=== PATIENT | female | born 1980 | race Hispanic/Latino ===

== ENCOUNTER 2020-03-19 07:02 | Emergency (ER) | payer SELFPAY ==
[~2020-03-19] VITALS: Ht 160 cm; Wt 83.0 kg
--- OUTSIDE RECORDS SUMMARY | 2020-03-19 07:05 | XMS REPORT | Continuity of Care Document ---
Author Author [facility] t Organization [facility] Address [address] [place] [address] Phone Unavailable Care Team Providers Care Saw Boss Name Role Phone Unavailable Unavailable Payers Payer Name Policy Type Policy Number Effective Date Expiration Date S ource Problems This patient has no known problems. Allergies, Adverse Reactions, Alerts Allergy Name Allergy Type Status Severity Reaction(s) Onset Date Inacti ve Date Treating Clinician Comments Source amoxicillin DA Active 2018-10-23 00:00:00 [facility] amoxicillin DA Active 2017-06-21 00:00:00 [facility] Medications This patient has no known medications. Procedures This patient has no known procedures. Results Test Description Test Time Test Comments Results Result Comments Source - US TRANSVAGINAL NON OB 2018-11-24 13:21:00 N francesco: BRIANDA CRANE [facility] : 1980 Age/S: 38 / F [address] [place] [address] Blvd Unit #: [id number] Loc: [place] [address] Phys: EDDOC GENERIC FOR EDM Acct: [id number] Dis Date: Status: REG ER PHONE #: [phone] Exam Date: 11/24/2018 1249 FAX #: [phone] Reason: PELVIC PAIN EXAMS: CPT CODE: [id number] [place] [address] Exam: Pelvic ultrasound. Exam date: November 24, 2018. Clinical history: Pelvic pain Comparison: None. Real-time transabdominal and transvaginal imaging of the pelvis with spectral Doppler analysis and color-flow imaging demonstrates a 85 x 53 x 56 mm retrodisplaced uterus. The endometrium measures 14 mm No uterine abnormalities are noted. The right ovary measures 32 x 26 x 29 mm with a 16 mm involuting hemorrhagic corpus luteum cyst. The left ovary measures 31 x 20 x 22 mm and has a normal sonographic appearance. Flow is identified in both ovaries. Small amount of nonspecific free fluid is identified. Impression: Findings are most consistent with rupture of a follicular type cyst. Considering the patient's LMP was 09/21/2018 correlation with hCG levels is recommended.. at 1321 Reported and signed by: Kathy Jauregui M.D. CC: Technologist: Oriana Waggoner RDMS(OB)(AB) Trnscb Date/Time: 11/24/2018 (1321) [email or web address] Orig Print D/T: S: 11/24/2018 (8582) Probe: [id number] PAGE 1 Signed Report - US PELVIS COMPLETE 2018-11-24 13:21:00 Name: BRIANDA CRANE [facility] : 1980 Age/S: 38 / F [address] [place] [address] Unit #: [id number] Loc: [place] [address] Phys: Megan Mancera NP Acct: [id number] Dis Date: Status: REG ER PHONE #: [phone] Exam Date: 11/24/2018 1249 FAX #: [phone] Reason: Pelvic Pain EXAMS: CPT CODE: [id number] US PELVIS COMPLETE 26253 Exam: Pelvic ultrasound. Exam date: November 24, 2018. Clinical history: Pelvic pain Comparison: None. Real-time transabdominal and transvaginal imaging of the pelvis with spectral Doppler analysis and color-flow imaging demonstrates a 85 x 53 x 56 mm retrodisplaced uterus. The endometrium measures 14 mm No uterine abnormalities are noted. The right ovary measures 32 x 26 x 29 mm with a 16 mm involuting hemorrhagic corpus luteum cyst. The left ovary measures 31 x 20 x 22 mm and has a normal sonographic appearance. Flow is identified in both ovaries. Small amount of nonspecific free fluid is identified. Impression: Findings are most consistent with rupture of a follicular type cyst. Considering the patient's LMP was 09/21/2018 correlation with hCG levels is recommended.. at 1321 Reported and signed by: Kathy Jauregui M.D. CC: Megan Mancera NP Technologist: Oriana Waggoner RDMS(OB)(AB) Trnrib Date/Time: 11/24/2018 (8331) [email or web address] Orig Print D/T: S: 11/24/2018 (6819) Probe: PAGE 1 Signed Report HEPATIC FUNCTION PANEL 2018-11-24 12:57:00 Test Item TOTAL PROTEIN (test code = PROT) 8.2 g/dL 6.4-8.2 N ALBUMIN (test code = ALB) 4.20 g/dL 3.4-5.0 N BILIRUBIN TOTAL (test code = BILT) 0.30 mg/dL 0.0-1.0 N BILIRUBIN DIRECT (test code = BILD) 0.10 MG/DL 0.0-0.30 N BILIRUBIN INDIRECT (test code = BILIND) 0.20 MG/DL SGOT/AST (test code = AST) 28 IUnit/L 15-37 N SGPT/ALT (test code = ALT) 24 IUnit/L 15-65 N ALKALINE PHOSPHATASE TOTAL (test code = ALKP) 97 IUnit/L 20-125 N [id number] 12:57:00* Test Item Value Reference Range Interpretation Comments LIPASE (test code = LIP) 63 IUnit/L 73-393 L HCG SERUM [id number] 12:57:00* Test Item Value Reference Range Interpretation Comments HCG SERUM QUAL (test code = HCGQL) SERUM NEGATIVE NEGATIVE CBC W/AUTO [id number] 12:48:00* Test Item Value Reference Range Interpretation Comments WHITE BLOOD CELL (test code = WBC) 7.55 x10 3/uL 4.5-11.0 N RED BLOOD CELL (test code = RBC) 4.43 x10 6/uL 3.54-5.02 N HEMOGLOBIN (test code = HGB) 13.9 g/dL 11.0-15.0 N HEMATOCRIT (test code = HCT) 42.7 % 33.0-45.0 N MEAN CELL VOLUME (test code = MCV) 96.4 fL 81.0-99.0 N MEAN CELL HGB (test code = MCH) 31.4 pg 27.0-33.0 N MEAN CELL HGB CONCETRATION (test code = MCHC) 32.6 g/dL 33.0-37. 0 L RED CELL DISTRIBUTION WIDTH CV (test code = RDW) 12.2 % 11.5- 14.5 N RED CELL DISTRIBUTION WIDTH SD (test code = RDW-SD) 43.5 fL 37 .0-54.0 N PLATELET COUNT (test code = PLT) 286 x10 3/uL 150-400 N MEAN PLATELET VOLUME (test code = MPV) 10.6 fL 7.0-9.0 H NEUTROPHIL % (test code = NT%) 61.0 % 56.0-77.0 N IMMATURE GRANULOCYTE % (test code = IG%) 0.5 % 0.0-2.0 N LYMPHOCYTE % (test code = LY%) 29.4 % 14.0-32.0 N MONOCYTE % (test code = MO%) 7.3 % 4.8-9.0 N EOSINOPHIL % (test code = EO%) 0.9 % 0.3-3.7 N BASOPHIL % (test code = BA%) 0.9 % 0.0-2.0 N NUCLEATED RBC % (test code = NRBC%) 0.0 % 0-0 N NEUTROPHIL # (test code = NT#) 4.60 x10 3/uL 2.0-7.6 N IMMATURE GRANULOCYTE # (test code = IG#) 0.04 x10 3/uL 0.00-0.03 H LYMPHOCYTE # (test code = LY#) 2.22 x10 3/uL 1.0-3.8 N MONOCYTE # (test code = MO#) 0.55 x10 3/uL 0.1-0.8 N EOSINOPHIL # (test code = EO#) 0.07 x10 3/uL 0.0-0.2 N BASOPHIL # (test code = BA#) 0.07 x10 3/uL 0.0-0.2 N NUCLEATED RBC # (test code = NRBC#) 0.00 x10 3/uL 0.0-0.1 N MANUAL DIFF REQUIRED (test code = MDIFF) NO HEPATIC FUNCTION [id number] 12:45:00* Test Item Value Reference Range Interpretation Comments TOTAL PROTEIN (test code = PROT) g/dL 6.4-8.2 ALBUMIN (test code = ALB) g/dL 3.4-5.0 BILIRUBIN TOTAL (test code = BILT) mg/dL 0.0-1.0 BILIRUBIN DIRECT (test code = BILD) MG/DL 0.0-0.30 SGOT/AST (test code = AST) IUnit/L 15-37 SGPT/ALT (test code = ALT) IUnit/L 15-65 ALKALINE PHOSPHATASE TOTAL (test code = ALKP) IUnit/L 20-125 [id number] 12:45:00* Test Item Value Reference Range Interpretation Comments LIPASE (test code = LIP) IUnit/L 73-393 HCG SERUM [id number] 12:45:00* Test Item Value Reference Range Interpretation Comments HCG SERUM QUAL (test code = HCGQL) SERUM NEGATIVE NEGATIVE URINALYSIS [id number] 12:36:00* Test Item Value Reference Range Interpretation Comments UA COLOR (test code = COLU) STRAW YEL/STRAW UA APPEARANCE (test code = APPU) CLEAR CLEAR UA GLUCOSE DIPSTICK (test code = DGLUU) NEGATIVE NEGATIVE UA BILIRUBIN DIPSTICK (test code = BILU) NEGATIVE NEGATIVE UA KETONE DIPSTICK (test code = KETU) 1+ NEGATIVE A UA SPECIFIC GRAVITY (test code = SGU) 1.003 1.005-1.030 L UA BLOOD DIPSTICK (test code = ANDREA) NEGATIVE NEGATIVE UA PH DIPSTICK (test code = MAMI) 5.0 5.0-7.0 N UA PROTEIN DIPSTICK (test code = PROU) NEGATIVE NEGATIVE UA UROBILINIOGEN DIPSTICK (test code = URO) 0.2 mg/dL 0.2-1.0 UA NITRITE DIPSTICK (test code = FLOYD) NEGATIVE NEGATIVE UA LEUKOCYTE ESTERASE DIPSTICK (test code = LEUU) TRACE NEGA TIVE A UA WBC (test code = WBCU) 0-3 WBC/HPF 0-3 UA RBC (test code = RBCU) 0-3 RBC/HPF 0-3 UA BACTERIA (test code = BACU) TRACE /HPF NONE SEEN UA SQUAMOUS CELLS (test code = SQU) 0-5 /HPF NONE SEEN UA MUCUS (test code = MUCU) TRACE /LPF NONE SEEN COMMENTS: Clean CatchCHEMISTRY 8 [id number] 12:12:00* Test Item Value Reference Range Interpretation Comments ISTAT-SODIUM (test code = NAP) MMOL/L 134-147 ISTAT-POTASSIUM (test code = KP) MMOL/L 3.4-5.0 ISTAT-CHLORIDE (test code = CLP) MMOL/L 100-108 ISTAT CARBON DIOXIDE (test code = ISTAT-CO2) mmol/L 21-33 N ISTAT CALCIUM IONIZED (test code = ISTAT-ABDULLAHI) MG/DL 1.12-1.3 2 ISTAT-GLUCOSE (test code = GLUP) MG/DL 70-110 N ISTAT-BUN (test code = BUNP) MG/DL 7-18 L BEDSIDE CREATININE (test code = CREATBED) MG/DL 0.6-1.3 L GLOMERULAR FILTRATION RATE POC (test code = GFRBED) 148 ML/MIN CHEMISTRY 8 [id number] 12:12:00* Test Item Value Reference Range Interpretation Comments ISTAT-SODIUM (test code = NAP) 140 MMOL/L 134-147 N ISTAT-POTASSIUM (test code = KP) 3.5 MMOL/L 3.4-5.0 N ISTAT-CHLORIDE (test code = CLP) 102 MMOL/L 100-108 N Performed by certified graphotype operator at [facility] ISTAT CARBON DIOXIDE (test code = ISTAT-CO2) 24.0 mmol/L 21-33 N ISTAT CALCIUM IONIZED (test code = ISTAT-ABDULLAHI) 1.19 MG/DL 1.12-1.3 2 N ISTAT-GLUCOSE (test code = GLUP) 89 MG/DL 70-110 N ISTAT-BUN (test code = BUNP) 6 MG/DL 7-18 L BEDSIDE CREATININE (test code = CREATBED) 0.5 MG/DL 0.6-1.3 L GLOMERULAR FILTRATION RATE POC (test code = GFRBED) 148 ML/MIN
--- NOTE | 2020-03-19 07:39 | Emergency Department Note ---
History of Present Illnes History of Present Illness Chief Complaint: Abdominal Complaints History of Present Illness This is a 40 year old female, history of herpes, anxiety, and depression who presents for evaluation of left lower abdominal pain for the past week. Patient states that the pain is intermittent and worse with standing or walking. Pain is described as sharp, stabbing, and causes her to leave forward, due to the pain. She denies any dysuria, frequency, urgency, hematuria or vaginal discharge. She has any fever, chills, nausea, vomiting, diarrhea, or constipation. She states that she does have a history of constipation but this is improved since taking probiotics. She has several small bowel movements each day, with her last bowel movement being this morning. She denies any history of ovarian cyst. LMP was 03/11/2020. She's taken 800 mg of ibuprofen, which is helpful in reducing the pain, however the pain does recur. She's had no intra- abdominal surgeries other than a tubal ligation. 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 Any updates have been documented here. Past Medical History Recent Fever: No Clinical Suspicion of Infectio: No New/Unexplained Change in Ment: No Past Medical History: Anxiety, Depression Past Surgical History: Tubal Ligation Other Surgery: CORRECTIVE EYE SURGERY FOR "LAZY EYE" Social History Smoking Cessation: Current every day smoker Counseling Performed: Yes Alcohol Use: None Any Illegal Drug Use: Yes (MARIJUANA) TB Exposure/Symptoms: No Physically hurt or threatened: No Family History Family history of heart diseas: No Other Last Tetanus: UNKNOWN Any Pre-Existing Lines (PICC,: No Last Flu: OOD Last Pneumovax: NA Review of Systems Review of Systems Constitutional: Reports no symptoms EENTM: Reports no symptoms Cardiovascular: Reports no symptoms Respiratory: Reports no symptoms Gastrointestinal: Reports abdominal pain Genitourinary: Reports other (pt states that she had some urinary incontinence last week, when on her menses); Denies discharge, Denies dysuria Musculoskeletal: Reports no symptoms Integumentary: Reports no symptoms Neurological: Reports no symptoms Psychological: Reports no symptoms Hematological/Lymphatic: Reports no symptoms Review of other systems All other systems reviewed and negative. Physical Exam Related Data Allergies: Coded Allergies: amoxicillin (Verified Allergy, Severe, RASH, 03/19/20) Triage Vital Signs Vital Signs Date Time Temp Pulse Resp B/P (MAP) Pulse Ox O2 Delivery O2 Flow Rate FiO2 03/19/20 07:05 97.8 80 18 144/82 99 Vital signs reviewed: Yes Physical Exam CONSTITUTIONAL Constitutional: Reports well-developed, Reports well-nourished, Reports other (no distress and not ill appearing) HENT HENT: Reports normocephalic, Reports atraumatic, Reports oropharynx caridad ar/moist, Reports nose normal HENT L/R: Reports left ext ear normal, Reports right ext ear normal EYES Eyes: Reports PERRL, Reports conjunctivae normal NECK Neck: Reports ROM normal PULMONARY Pulmonary: Reports effort normal, Reports breath sounds normal CARDIOVASCULAR Cardiovascular: Reports regular rhythm, Reports heart sounds normal, Reports capillary refill normal, Reports normal rate GASTROINTESTINAL Abdominal: Reports soft, Reports nontender, Reports bowel sounds normal, Reports other (unable to reproduce the pain; no palpable hernias.) GENITOURINARY SKIN Skin: Reports warm, Reports dry MUSCULOSKELETAL Musculoskeletal: Reports ROM normal NEUROLOGICAL Neurological: Reports alert, Reports oriented x 3, Reports no gross motor or sensory deficits PSYCHOLOGICAL Psychological: Reports mood/affect normal, Reports judgement normal Results Laboratory Laboratory CBC - normal CMP - normal UA - negative UPT - negative Lab results reviewed: Yes Imaging Imaging results reviewed: Yes Impressions ient Name: BRIANDA CRANE MR #: [id number] : 1980 Age/Sex: 40/F Req #: [id number] Adm Physician: Ordered by: CUBA WRIGHT MD Report #: [id number] Location: REPLACED BY [facility] Room/Bed: Procedure: [id number] HOPD/CT ABD/PEL WITH CONTRAST-HOPD Exam Date: 03/19/20 Exam Time: 0825 REPORT STATUS: Signed EXAM: CT Abdomen and Pelvis WITH intravenous contrast INDICATION: Left lower quadrant abdominal pain COMPARISON: None. TECHNIQUE: Abdomen and pelvis were scanned utilizing a multidetector helical scanner from the lung base to the pubic symphysis after administration of IV contrast. Coronal and sagittal reformations were obtained. Routine protocol was performed. Scan was performed during portal venous phase. IV CONTRAST: 100mL of Isovue 370 ORAL CONTRAST: None RADIATION DOSE: Total DLP: 783 mGy*cm Dose modulation, iterative reconstruction, and/or weight based adjustment of the mA/kV was utilized to reduce the radiation dose to as low as reasonably achievable. FINDINGS: LOWER THORAX: Normal. HEPATOBILIARY: Diffuse hepatic steatosis. No focal liver lesion. No biliary ductal dilation. SPLEEN: No splenomegaly. PANCREAS: No focal masses or ductal dilatation. ADRENALS: No adrenal nodules. KIDNEYS/URETERS: No hydronephrosis, stones, or solid mass lesions. PELVIC ORGANS/BLADDER: Right greater than left adnexal cystic structures measure up to 3.1 cm. Higher density on the right may reflect hemorrhagic cyst. PERITONEUM / RETROPERITONEUM: No free air or fluid. LYMPH NODES: No lymphadenopathy. VESSELS: Unremarkable. GI TRACT: No abnormal bowel thickening. No bowel obstruction. Normal appendix. BONES AND SOFT TISSUES: Unremarkable. IMPRESSION: Right greater than left adnexal cysts with likely hemorrhagic cyst on the right. Diffuse hepatic steatosis. No abnormal bowel wall thickening or bowel obstruction. Signed by: Kala Eli MD on 03/19/2020 8:39 AM Dictated By: KALA ELI MD 8 Transcribed By: XIOMARA on 03/19/20838 COPY TO: CUBA WRIGHT MD~ Diagnostics Tests Diagnostic test(s) reviewed: Yes Assessment & Plan Medical Decision Making MDM Considered colitis, ruptured ovarian cyst, constipation, hernia, renal stone as part of ddxPatient has decided to leave the hospital against medical advice. At this time re-evaluated patient and discussed at bedside the followin. Capacity: Patient has capacity to communicate, ability to understand information, and the ability to manipulate the information presented to make a logical decision. 2. Communication of risk: Discussed with patient at bedside potential risks, potential outcomes, alternative approaches in a patient-centered manner. We discussed the specific risks of , including worsening condition, and . Patient understands we would welcome a return visit at any time to complete the work-up. At this time, patient is discharged against medical advice from my care. Reassessment Reassessment time: 09:05 Reassessment Pt sleeping comfortable in room. Assessment & Plan Final Impression: (1) Abdominal pain, LLQ (2) Bilateral ovarian cysts Depart Disposition: HOME, SELF-CARE ( - Follow-up with your BACCARAT MANAGER for further evaluation of bilateral ovarian cysts; Continue the Ibuprofen, prn pain and return to the ED, if symptoms/pain worsens.) Last Vital Signs Date Time Temp Pulse Resp B/P (MAP) Pulse Ox O2 Delivery O2 Flow Rate FiO2 03/19/20 07:05 97.8 80 18 144/82 99 CUBA WRIGHT MD Mar 19, 2020 07:39
[2020-03-19] MEDS ORDERED: IOPAMIDOL 370 MG/ML 200 ML INFUS..BTL INJ ONE (08:12)
[2020-03-19] MEDS ORDERED: SODIUM CHLORIDE 0.9% 50ML 50 ML ONE (08:13)
--- NOTE | 2020-03-19 08:43 | Diagnostic Imaging Report ---
EXAM: CT Abdomen and Pelvis WITH intravenous contrast INDICATION: Left lower quadrant abdominal pain COMPARISON: None. TECHNIQUE: Abdomen and pelvis were scanned utilizing a multidetector helical scanner from the lung base to the pubic symphysis after administration of IV contrast. Coronal and sagittal reformations were obtained. Routine protocol was performed. Scan was performed during portal venous phase. IV CONTRAST: 100mL of Isovue 370 ORAL CONTRAST: None RADIATION DOSE: Total DLP: 783 mGy*cm Dose modulation, iterative reconstruction, and/or weight based adjustment of the mA/kV was utilized to reduce the radiation dose to as low as reasonably achievable. FINDINGS: LOWER THORAX: Normal. HEPATOBILIARY: Diffuse hepatic steatosis. No focal liver lesion. No biliary ductal dilation. SPLEEN: No splenomegaly. PANCREAS: No focal masses or ductal dilatation. ADRENALS: No adrenal nodules. KIDNEYS/URETERS: No hydronephrosis, stones, or solid mass lesions. PELVIC ORGANS/BLADDER: Right greater than left adnexal cystic structures measure up to 3.1 cm. Higher density on the right may reflect hemorrhagic cyst. PERITONEUM / RETROPERITONEUM: No free air or fluid. LYMPH NODES: No lymphadenopathy. VESSELS: Unremarkable. GI TRACT: No abnormal bowel thickening. No bowel obstruction. Normal appendix. BONES AND SOFT TISSUES: Unremarkable. IMPRESSION: Right greater than left adnexal cysts with likely hemorrhagic cyst on the right. Diffuse hepatic steatosis. No abnormal bowel wall thickening or bowel obstruction. Signed by: Andres Eli MD on 03/19/2020 8:39 AM
== END 2020-03-19 09:22 | disposition home or self-care (01) ==
LOC: FSED 07:02
DX: R10.32 Left lower quadrant pain (principal); N83.202 Unspecified ovarian cyst, left side; N83.201 Unspecified ovarian cyst, right side; F41.9 Anxiety disorder, unspecified; F32.9 Major depressive disorder, single episode, unspecified; F17.210 Nicotine dependence, cigarettes, uncomplicated
CPT/HCPCS: 74177; 80053; 81003; 81025; 85025; 99284; Q9967

== ENCOUNTER 2020-04-09 12:17 | Emergency (ER) | payer SELFPAY ==
[~2020-04-09] VITALS: Ht 160 cm; Wt 81.6 kg
--- NOTE | 2020-04-09 13:15 | Emergency Department Note ---
History of Present Illnes History of Present Illness Chief Complaint: Abdominal Complaints History of Present Illness This is a 40 year old female, with a history of anxiety, depression, and previous opioid dependence, presents with questions regarding her last visit here on 03/19/2020. Patient was seen at that time for left lower quadrant abdominal pain and cramping. As part of her evaluation, she had a CT of the abdomen and pelvis which revealed "right greater than left adnexal cyst with a likely hemorrhagic cyst on the right, along with diffuse hepatic steatosis." Patient was instructed at that time to follow up with her carpet layer for further evaluation, if the pain persisted. The pain has apparently persisted intermittently, and she is here today because she is concerned because she had intercourse yesterday, and then developed some vaginal spotting of bright red blood. She states that the intercourse was not painful or traumatic. She is not sure if the blood could be that she is due to start her period, as she is due to start any day. She is concerned that the bleeding may be from the cyst on her ovaries. She states that she just has some questions regarding the CT scan that was performed 3 weeks ago at this facility. I actually saw the patient for this visit on 03/19/2020. She has not yet followed up with her carpet layer. Ibuprofen does temporarily relieve the pain. She denies any fever, chills, nausea, vomiting, or vaginal di scharge other than the spotting. Nothing has changed about the quality,character, or frequency of the left lower quadrant abdominal pain. 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: Car Additional Treatment [employer]: omeprazole Capping Machine Operator Required: No Onset (how long ago): month(s) Location: LLQ abd pain Quality: sharp, stabbing Radiation: Reports non-radiation Severity: moderate Onset quality: sudden Duration (how long): month(s) (1) Timing of current episode: intermittent Progression: unchanged Chronicity: new Context: Denies recent illness, Denies recent travel, Denies trauma/injury Relieving factors: other (pain relieved with NSAIDs) Exacerbating factors: movement (movement sometimes worsens) Associated symptoms: Reports denies other symptoms; Denies cough, Denies fever/chills, Denies loss of appetite, Denies malaise, Denies nausea/vomiting, Denies shortness of breath, Denies weakness Treatments prior to arrival: none Previous service: medications given Past Medical/Family History Physician Review I have reviewed the patient's past medical and family history. Any updates have been documented here. Past Medical History Recent Fever: No Clinical Suspicion of Infectio: No New/Unexplained Change in Ment: No Past Medical History: Anxiety, Depression Other Medical History: Previous Opioid Dependence Past Surgical History: Tubal Ligation Other Surgery: CORRECTIVE EYE SURGERY FOR "LAZY EYE" Social History Smoking Cessation: Current every day smoker (/ ppd) Counseling Performed: Yes Alcohol Use: Occasional Any Illegal Drug Use: No TB Exposure/Symptoms: No Physically hurt or threatened: No Family History Family history of heart diseas: No Other Last Tetanus: UNKNOWN Any Pre-Existing Lines (PICC,: No Is patient up to date on immun: No Review of Systems Review of Systems Constitutional: Reports no symptoms; Denies fever, Denies malaise EENTM: Reports no symptoms Cardiovascular: Denies chest pain, Denies palpitations Respiratory: Denies cough, Denies dyspnea Gastrointestinal: Reports abdominal pain (intermittent LLQ); Denies diarrhea, Denies nausea, Denies vomiting Genitourinary: Reports no symptoms; Denies dysuria, Denies frequency Musculoskeletal: Reports no symptoms Integumentary: Reports no symptoms Neurological: Denies numbness Psychological: Reports no symptoms Hematological/Lymphatic: Reports no symptoms Review of other systems: All other systems negative Physical Exam Related Data Allergies: Coded Allergies: amoxicillin (Verified Allergy, Severe, RASH, 03/19/20) Penicillins (Verified Allergy, Intermediate, 04/09/20) Vital signs reviewed: Yes Physical Exam CONSTITUTIONAL Constitutional: Present well-developed, Present well-nourished, Present obese; Absent ill appearing HENT HENT: Present normocephalic, Present atraumatic, Present oropharynx clear/moist, Present nose normal HENT L/R: Present left TM normal, Present right TM normal, Present left ext ear normal, Present right ext ear normal EYES Eyes: Reports PERRL, Reports conjunctivae normal NECK Neck: Present ROM normal, Present supple; Absent cervical adenopathy PULMONARY Pulmonary: Present effort normal, Present breath sounds normal CARDIOVASCULAR Cardiovascular: Present regular rhythm, Present heart sounds normal, Present capillary refill normal, Present normal rate GASTROINTESTINAL Abdominal: Present soft, Present nontender, Present bowel sounds normal; Absent distension, Absent tender, Absent guarding, Absent rebound, Absent left CVA tenderness, Absent right CVA tenderness GENITOURINARY Genitourinary: Present exam deferred SKIN Skin: Present warm, Present dry; Absent rash MUSCULOSKELETAL Musculoskeletal: Present ROM normal NEUROLOGICAL Neurological: Present alert, Present oriented x 3, Present no gross motor or sensory deficits PSYCHOLOGICAL Psychological: Present mood/affect normal, Present judgement normal Results Imaging Imaging results reviewed: Yes (of appendicitis) Impressions [place] [address] Patient Name: BRIANDA CRANE MR #: [id number] : 1980 Age/Sex: 40/F Req #: [id number] Adm Physician: Ordered by: CUBA WRIGHT MD Report #: [id number] Location: [facility] Room/Bed: Procedure: HOPD/CT ABD/PEL WITH CONTRAST-HOPD Exam Date: 03/19/20 Exam Time: 0825 REPORT STATUS: Signed EXAM: CT Abdomen and Pelvis WITH intravenous contrast INDICATION: Left lower quadrant abdominal pain COMPARISON: None. TECHNIQUE: Abdomen and pelvis were scanned utilizing a multidetector helical scanner from the lung base to the pubic symphysis after administration of IV contrast. Coronal and sagittal reformations were obtained. Routine protocol was performed. Scan was performed during portal venous phase. IV CONTRAST: 100mL of Isovue 370 ORAL CONTRAST: None RADIATION DOSE: Total DLP: 783 mGy*cm Dose modulation, iterative reconstruction, and/or weight based adjustment of the mA/kV was utilized to reduce the radiation dose to as low as reasonably achievable. FINDINGS: LOWER THORAX: Normal. HEPATOBILIARY: Diffuse hepatic steatosis. No focal liver lesion. No biliary ductal dilation. SPLEEN: No splenomegaly. PANCREAS: No focal masses or ductal dilatation. ADRENALS: No adrenal nodules. KIDNEYS/URETERS: No hydronephrosis, stones, or solid mass lesions. PELVIC ORGANS/BLADDER: Right greater than left adnexal cystic structures measure up to 3.1 cm. Higher density on the right may reflect hemorrhagic cyst. PERITONEUM / RETROPERITONEUM: No free air or fluid. LYMPH NODES: No lymphadenopathy. VESSELS: Unremarkable. GI TRACT: No abnormal bowel thickening. No bowel obstruction. Normal appendix. BONES AND SOFT TISSUES: Unremarkable. IMPRESSION: Right greater than left adnexal cysts with likely hemorrhagic cyst on the right. Diffuse hepatic steatosis. No abnormal bowel wall thickening or bowel obstruction. Signed by: Kala Eli MD on 03/19/2020 8:39 AM Dictated By: KALA ELI MD 8 Transcribed By: XIOMARA on 03/19/20838 COPY TO: CUBA WRIGHT MD~ Assessment & Plan Medical Decision Making MDM - Follow-up with Gynecology, as discussed, ALFREDA. - Pt declined further work-up and evaluation today, including pelvic exam and pelvic USG. She stated that she would make an appt with her [employer] this week, for furhter evaluation. Assessment & Plan Final Impression: (1) Abdominal pain, LLQ (2) Bilateral ovarian cysts Depart Disposition: HOME, SELF-CARE CUBA WRIGHT MD Apr 09, 2020 13:15
--- NOTE | 2020-04-09 13:51 | NUR ---
DR WRIGHT AT BEDSIDE TO SPEAK TO PT OFFERED PT PEVIC EXAM AND PELVIC US, PT DECLINED AND STATED SHE JUST WANTED TO ASK SOME QUESTIONS AND WOULD FOLLOW UP WITH HER OBGYN,
== END 2020-04-09 13:54 | disposition home or self-care (01) ==
LOC: FSED 12:17
DX: R10.32 Left lower quadrant pain (principal); N83.202 Unspecified ovarian cyst, left side; N83.201 Unspecified ovarian cyst, right side; F41.9 Anxiety disorder, unspecified; F32.9 Major depressive disorder, single episode, unspecified; F17.210 Nicotine dependence, cigarettes, uncomplicated
CPT/HCPCS: 99282